=== PATIENT | female | born 1940 | race Caucasian/White ===

== ENCOUNTER → 2019-09-03 | Day surgery (SDC) | payer MEDICARE, OTHER ==
[2019-08-30 16:02] LABS: BASOPHILS # (AUTO) 0.1 (0.0-0.1); BASOPHILS % 1.3 % (0.0-1.0); EOSINOPHILS # (AUTO) 0.1 (0.0-0.4); EOSINOPHILS % 1.9 % (0.0-6.0); HEMATOCRIT 44.6 % (34.2-44.1); HEMOGLOBIN 14.4 g/dL (12.0-16.0); LYMPHOCYTES # (AUTO) 0.9 (1.0-3.2); LYMPHOCYTES % 12.7 % (18.0-39.1); MEAN CORPUSCULAR HEMOGLOBIN 29.2 pg (28-32); MEAN CORPUSCULAR HGB CONC 32.3 g/dL (31-35); MEAN CORPUSCULAR VOLUME 90.5 fL (81-99); MONOCYTES # (AUTO) 0.5 (0.2-0.8); MONOCYTES % 7.4 % (4.4-11.3); NEUTROPHILS # (AUTO) 5.4 (2.1-6.9); NEUTROPHILS % 76.6 % (38.7-80.0); PLATELET COUNT 298 x10e3/uL (140-360); RED BLOOD COUNT 4.93 x10e6/uL (3.6-5.1); RED CELL DISTRIBUTION WIDTH 13.1 % (11.7-14.4)
--- NOTE | 2019-08-30 16:33 | Diagnostic Imaging Report ---
EXAMINATION: CHEST 2 VIEWS INDICATION: Pre-operative COMPARISON: None FINDINGS: LINES/TUBES:None LUNGS:The lungs are well-inflated. Prominent perihilar interstitial opacities and peripheral interlobular septal thickening. PLEURA:No pleural effusion or pneumothorax. MEDIASTINUM:The cardiomediastinal silhouette appears normal in size and shape. BONES/SOFT TISSUES:No acute osseous injury. ABDOMEN:No free air under the diaphragm. IMPRESSION: Prominent perihilar interstitial opacities and interlobular septal thickening can be seen in the setting of interstitial pulmonary edema. No focal consolidation. Signed by: Anna Bowers MD on 08/30/2019 4:29 PM
[~2019-09-03] MED LIST: ASPIRIN81 MG PO; BUPIVACAINE HCL 0.5% INJ 30 ML VIAL INJ ONE; CEFAZOLIN SOD 1 GM/NS 50ML 50 ML IV ONE; CHOLESTEROL MED PO; DEXAMETHASONE SOD PHOS INJ 4 MG/ML VIAL ONE; ETOMIDATE 2 MG/ML 10 ML INJ IV ONE; EXCEDRIN EXTRA1 EAC1 PO; KETOROLAC TROMETHAMINE 30 MG/ML VIAL ONE; LEVOTHYROXINE50 MCG PO; LIDOCAINE HCL 2% LOCAL INJ 5 ML SDV VIAL INJ ONE; MULTIVITAMINS1 EAC7 PO; ONDANSETRON HCL INJ 2MG/ML 2ML 2 MG/ML VIAL ONE; PROPOFOL IV EMULSION 10 MG/ML 20 ML VIAL ONE; SEVOFLURANE INHAL SOLN 250 ML PEN BTL ONE; VITAMIN C 250250 MG PO; VITAMIN D31 GM PO
--- NOTE | 2019-09-03 08:43 | Operative Report ---
DATE OF PROCEDURE: 09/03/2019 SURGEON: Thelma Mustafa DPM PREOPERATIVE DIAGNOSIS: Left 5th metatarsal fracture. POSTOPERATIVE DIAGNOSIS: Left 5th metatarsal fracture. PLANNED PROCEDURE: Left 5th metatarsal open reduction and internal fixation. BUFFING WHEEL INSPECTOR: Thelma Mustafa DPM ANESTHESIA: General with a postoperative block consisting of 10 mL of 0.5% Marcaine plain. HEMOSTASIS: Pneumatic thigh tourniquet set at 350 mmHg for a total time of approximately 35 minutes. MATERIALS: One [employer] 6-hole plate, five [employer] 2.4 mm screws measuring between 10 mm and 14 mm, 3-0 Vicryl, and 4-0 nylon. ESTIMATED BLOOD LOSS: Less than 10 mL. PATHOLOGY: None. DESCRIPTION OF PROCEDURE: The patient was seen in the preoperative waiting room and the correct procedure and site was identified. The patient was brought to the operating room and placed on the operating table in the supine position. General anesthesia was initiated. At this time, a well-padded pneumatic tourniquet was placed about the patient's left thigh. The left foot ankle leg was then scrubbed, prepped, and draped in the usual aseptic manner. The left foot, ankle and leg was exsanguinated with an Esmarch bandage. The pneumatic thigh tourniquet was inflated to 350 mmHg for a total time of approximately 35 minutes. Attention was directed to the lateral aspect of the patient's left 5th metatarsal where a 5 cm linear incision made was made. The incision was carried down directly to the level of subcutaneous tissue and periosteum. The incision was carried down to the level of bone to allow for good visualization of the long comminuted spiral oblique fracture of the 5th metatarsal. Utilizing techniques of manipulation and distraction, the fracture site hematoma was debrided. It was reduced and temporarily clamped with a lobster claw type bone reduction forceps. This was confirmed via intraoperative fluoroscopy. Next, a 6-hole [employer] plate was placed across the fracture site temporarily fixated. Next, utilizing techniques of AO fixation, five cortical bone screws nonlocking and locking measuring between 10 mm or 14 mm were placed across the fracture site. The fixation site is stable. This was confirmed again via intraoperative fluoroscopy. The wound was then copiously irrigated with sterile saline. Capsule and deep tissue were reapproximated with 3-0 Vicryl, subcutaneous tissue with 3-0 Vicryl, and the skin was closed using a simple running interlocking suture with 4-0 nylon. The patient tolerated the procedure and anesthesia well. The patient was transferred to the postoperative recovery with vital signs stable and vascular status intact. The patient was monitored there for a short of period time before being sent home with the following written and oral instructions. 1. Keep the dressing clean, dry, and intact. 2. The patient is to remain nonweightbearing to the left lower extremity to avoid excessive ambulation until being seen in the office. 3. The patient is given the office number and instructed to contact us for any problems arise. Dictated by Thelma Mustafa DPM S MITCHEL [facility]ne (Charley)/[facility] /[id number]
[2019-09-03 09:05] VITALS: BP 132/71
== END | disposition home or self-care (01) ==
LOC: OR 05:00
PROVIDERS: ATTEND Podiatrist Foot & Ankle Surgery
DX: S92.352A Displaced fracture of fifth metatarsal bone, left foot, initial encounter for closed fracture (principal); Z88.5 Allergy status to narcotic agent; Z88.2 Allergy status to sulfonamides; Z88.7 Allergy status to serum and vaccine; Z88.8 Allergy status to other drugs, medicaments and biological substances; Z11.59 Encounter for screening for other viral diseases
CPT/HCPCS: 28485; 36415; 71046; 85025; 93005; C1713 ×2; J0690; J1100; J1885; J2001; J2405; J2704; U0002